=== PATIENT | male | born 1945 | race Caucasian/White ===

== ENCOUNTER → 2021-03-09 | Outpatient (CLI) | payer MEDICARE ==
[~2021-03-09] MED LIST: ZOFRAN 4 MG4 MG/5 ML GT
== END ==
LOC: KOH-I 12:13
DX: G45.9 Transient cerebral ischemic attack, unspecified (principal)
CPT/HCPCS: 70450

== ENCOUNTER 2021-04-28 21:57 | Emergency (ER) | payer MEDICARE ==
[2021-04-28 22:46] LABS: HEMOGLOBIN 13.1 gm/dl (14.0-17.5); RED BLOOD COUNT 4.3 M/UL (4.20-5.50); WHITE BLOOD COUNT 6.6 K/UL (4.5-11.0)
[2021-04-28 23:01] LABS: BUN/CREATININE RATIO 11 (0-10)
[2021-04-29] MEDS ORDERED: ZOFRAN 4 MG4 MG/5 ML GT (01:07)
== END 2021-04-29 01:27 ==
LOC: ER1 21:57
PROVIDERS: Student in an Organized Health Care Education/Training Program
DX: N21.0 Calculus in bladder (principal); R11.2 Nausea with vomiting, unspecified; E78.5 Hyperlipidemia, unspecified; Z86.73 Personal history of transient ischemic attack (TIA), and cerebral infarction without residual deficits
CPT/HCPCS: 80053; 85025; 99285